=== PATIENT | female | born 1955 | race Caucasian/White ===

== ENCOUNTER 2023-03-09 10:59 | Day surgery (SDC) | payer MEDICARE, BC ==
[2023-03-05 09:39] LABS: BASOPHILS % (AUTO) 0.7 % (0-1); EOSINOPHILS # (AUTO) 0.1 X10'3 (0-0.9); EOSINOPHILS % (AUTO) 3.3 % (0-6); HEMATOCRIT 40.1 % (35.0-45.0); HEMOGLOBIN 13.4 g/dl (12.0-16.0); LYMPHOCYTES # (AUTO) 0.9 X10'3 (1.1-4.8); LYMPHOCYTES % (AUTO) 26.5 % (21-51); MEAN CORPUSCULAR HEMOGLOBIN 33.1 PG (27.0-31.0); MEAN CORPUSCULAR HGB CONC 33.4 g/dL (33.0-36.5); MEAN CORPUSCULAR VOLUME 99.2 FL (78-98); MEAN PLATELET VOLUME 8.8 FL (7.4-10.4); MONOCYTES # (AUTO) 0.3 X10'3 (0-0.9); MONOCYTES % (AUTO) 9.8 % (2-12); NEUTROPHILS % (AUTO) 59.7 % (42-75); PLATELET COUNT 81 X10'3 (140-440); RED BLOOD COUNT 4.05 X10'6 (4.20-5.60); RED CELL DISTRIBUTION WIDTH 13.1 % (11.5-14.5); WHITE BLOOD COUNT 3.4 X10'3 (4.5-11.0)
[2023-03-05 09:50] LABS: APTT 35 SECONDS (22-32)
[2023-03-05 10:01] LABS: ALBUMIN 3.3 G/DL (3.4-5.0); ANION GAP 4 (8-16); BLOOD UREA NITROGEN 26 MG/DL (7-18); BUN/CREATININE RATIO 27.7 (10.0-20.0); CALCIUM 8.8 MG/DL (8.5-10.1); CHLORIDE 105 MMOL/L (99-107); CHOLESTEROL 113 MG/DL (0-200); CREATININE 0.94 MG/DL (0.40-0.90); GLUCOSE 90 MG/DL (70-104); HDL CHOLESTEROL 56 MG/DL (35-60); LDL CHOLESTEROL 51 MG/DL (50-100); POTASSIUM 3.8 MMOL/L (3.5-5.1); SODIUM 140 MMOL/L (135-145); TOTAL CARBON DIOXIDE 30.7 MMOL/L (24-32); TRIGLYCERIDES 62 MG/DL (20-135); eGFR 59 ML/MIN
[2023-03-09] VITALS (11 sets, daily range): BP systolic 101–143; BP diastolic 41–81
[~2023-03-09] VITALS: Ht 167.6 cm; Wt 79.3 kg
[2023-03-09] MEDS ORDERED: diphenhydrAMINE 25mg capsule PO PRN (11:30)
[2023-03-09] MEDS ORDERED: LORazepam 0.5 MG tablet PO PRN (11:30)
[2023-03-09] MEDS ORDERED: ACET-1025 PO (11:37)
[2023-03-09] MEDS ORDERED: FURO40TA4 PO (11:37)
[2023-03-09] MEDS ORDERED: APIX5TAB3 PO (11:37)
[2023-03-09] MEDS ORDERED: LIDOcaine 1% (10mg/ml) 2ml vial ONE (15:38)
[2023-03-09] MEDS ORDERED: verapamil 2.5 mg/ml inj IV ONE (15:38)
[2023-03-09] MEDS ORDERED: fentaNYL/PF 50MCG/1 ML 2ML syringe ONE (15:38)
[2023-03-09] MEDS ORDERED: nitroGLYCERIN-Tridil 50MG/D5W 250 ML IV ONE (15:38)
[2023-03-09] MEDS ORDERED: midazolam 1 mg/ML 2ml injection ONE (15:39)
[2023-03-09] MEDS ORDERED: iohexol 350MG/ML 100ml bottle IV ONE (15:39)
[2023-03-09] MEDS ORDERED: heparin 1,000unit/ml 10ml vial 10 ML ONE (15:39)
[2023-03-09] MEDS ORDERED: HYDROcodone/acetaminophen 10/325mg tab PO PRN (17:10)
[2023-03-09] MEDS ORDERED: HYDROcodone/acetaminophen 5mg/325mg tablet PO PRN (17:10)
--- NOTE | 2023-03-09 18:25 | NUR ---
Released all air from compression band. When attempted to remove compression band, radial artery started oozing. Reapplied compression band and 15cc of air. Addendum: 03/09/23 at 2012 by Olegario Partida RN Amended: Links added.
== END 2023-03-09 19:45 | disposition home or self-care (01) ==
LOC: SSTAY O 10:59
PROVIDERS: ATTEND Student in an Organized Health Care Education/Training Program
DX: R94.39 Abnormal result of other cardiovascular function study (principal); I25.10 Atherosclerotic heart disease of native coronary artery without angina pectoris; I48.0 Paroxysmal atrial fibrillation; K74.60 Unspecified cirrhosis of liver; E78.5 Hyperlipidemia, unspecified; Z88.8 Allergy status to other drugs, medicaments and biological substances; Z88.5 Allergy status to narcotic agent; Z88.2 Allergy status to sulfonamides; Z88.4 Allergy status to anesthetic agent; Z79.01 Long term (current) use of anticoagulants; Z79.899 Other long term (current) drug therapy
CPT/HCPCS: 80048; 80061; 85025; 85610; 85730; 93005; 93458; 99152; A6258; J1644; J2250; J3490; J7030; Q0163; Q9967; A6402; C1894; J3010